=== PATIENT | male | born 1955 | race Asian ===

== ENCOUNTER 2018-04-15 11:53 | Day surgery (SDC) | payer OTHER ==
[2018-04-15] MEDS ORDERED: METOPROLOL 5 MG INJ (13:11)
[2018-04-15] MEDS ORDERED: PROPOFOL 40 ML (13:11)
== END 2018-04-15 14:39 | disposition home or self-care (01) ==
LOC: GIL 11:53
DX: Z12.11 Encounter for screening for malignant neoplasm of colon (principal); D12.0 Benign neoplasm of cecum; I10 Essential (primary) hypertension
CPT/HCPCS: 45380; 88305